=== PATIENT | female | born 1995 | race Two or more races ===

== ENCOUNTER 2017-02-25 18:57 | Emergency (ER) | payer OTHER ==
[2017-02-25] MEDS ORDERED: Acetaminophen TAB* 325 MG PO ONE (20:02)
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
[2017-02-25] MEDS ORDERED: traMADol TAB* 50 MG PO ONE (21:16)
[2017-02-25] MEDS ORDERED: Ondansetron ODT TAB* 4 MG PO ONE (21:16)
[2017-02-25 21:51] VITALS: BP 113/65
== END 2017-02-25 21:45 | disposition home or self-care (01) ==
LOC: ED 18:57
DX: S09.90XA Unspecified injury of head, initial encounter (principal); S01.01XA Laceration without foreign body of scalp, initial encounter; S01.81XA Laceration without foreign body of other part of head, initial encounter; S52.122A Displaced fracture of head of left radius, initial encounter for closed fracture; S00.83XA Contusion of other part of head, initial encounter; M25.522 Pain in left elbow; V19.9XXA Pedal cyclist (driver) (passenger) injured in unspecified traffic accident, initial encounter; Y93.55 Activity, bike riding; Y92.9 Unspecified place or not applicable
CPT/HCPCS: 12011; 70450; 70486; 99282; A9270-GY